=== PATIENT | female | born 1985 | race Caucasian/White ===

== ENCOUNTER 2016-10-29 23:04 | Emergency (ER) | payer BC, OTHER ==
[~2016-10-29] VITALS: Ht 160 cm; Wt 59.0 kg
[2016-10-29] MEDS ORDERED: NICO-180 (23:46)
--- NOTE | 2016-10-30 00:35 | NUR ---
Patient discharged to home in stable conditon. Written and verbal after care instructions given. Patient verbalizes understanding of instructions.
== END 2016-10-30 00:38 | disposition home or self-care (01) ==
LOC: ER 23:14
DX: F32.9 Major depressive disorder, single episode, unspecified (principal); F41.9 Anxiety disorder, unspecified; Z88.0 Allergy status to penicillin; F17.200 Nicotine dependence, unspecified, uncomplicated; G43.909 Migraine, unspecified, not intractable, without status migrainosus
CPT/HCPCS: 99284; A4663

== ENCOUNTER 2021-02-13 10:01 | Outpatient (CLI) | payer BC, OTHER ==
[~2021-02-13 10:01] MED LIST: [UNRECOGNIZED DRUG - CODE]
[2021-02-13 10:53] LABS: HEMATOCRIT 38.8 % (31.2-41.9); MEAN CORPUSCULAR HEMOGLOBIN 34.5 uug (24.7-32.8); MEAN CORPUSCULAR VOLUME 97.2 fL (75.5-95.3); PLATELET COUNT (AUTO) 260 K/uL (179-408)
[2021-02-13 11:06] LABS: BILIRUBIN,DIRECT 0.1 mg/dL (0.0-0.2); BILIRUBIN,TOTAL 0.5 mg/dL (0.2-1.0); TOTAL PROTEIN, SERUM 6.9 g/dL (6.4-8.2)
[2021-02-13 11:14] LABS: THYROID STIMULATING HORMONE 0.485 mIU/mL (0.358-3.740)
== END 2021-02-13 23:59 | disposition home or self-care (01) ==
LOC: LAB 10:01
PROVIDERS: ATTEND Obstetrics & Gynecology
DX: Z20.2 Contact with and (suspected) exposure to infections with a predominantly sexual mode of transmission (principal)
CPT/HCPCS: 36415; 84443; 85025; 86592; 86803; 86900; 86901; 87806

== ENCOUNTER 2024-04-19 22:09 | Emergency (ER) | payer BC, OTHER ==
[~2024-04-19] VITALS: Ht 160 cm; Wt 44.5 kg
[2024-04-20 01:14] LABS: BASOPHILS % (AUTO) 0.5 % (0.0-2.0); EOSINOPHILS # (AUTO) 0.1 K/uL (0.0-0.7); EOSINOPHILS % (AUTO) 1.6 % (0.0-7.0); HEMATOCRIT 29.1 % (31.2-41.9); HEMOGLOBIN 9.2 g/dL (10.9-14.3); LYMPHOCYTES # (AUTO) 1.2 K/uL (0.8-4.8); LYMPHOCYTES % (AUTO) 14.8 % (20.5-51.5); MEAN CORPUSCULAR HEMOGLOBIN 22.4 uug (24.7-32.8); MEAN CORPUSCULAR HGB CONC 32 g/dL (32.3-35.6); MEAN CORPUSCULAR VOLUME 70.5 fL (75.5-95.3); MONOCYTES # (AUTO) 0.6 K/uL (0.1-1.30); MONOCYTES % (AUTO) 7.7 % (0.0-11.0); NEUTROPHILS % (AUTO) 75.4 % (38.5-71.5); PLATELET COUNT (AUTO) 472 K/uL (179-408); RED BLOOD CELL COUNT(AUTO) 4.13 MIL/uL (3.63-4.92); RED CELL DISTRIBUTION WIDTH 22.1 % (12.3-17.7); WHITE BLOOD COUNT (AUTO) 7.9 K/uL (3.8-11.8)
[2024-04-20 01:32] LABS: DIFFERENTIAL COMMENT 1
[2024-04-20 02:00] LABS: ALANINE AMINOTRANSFERASE 7 U/L (14-59); ALBUMIN 2.7 g/dL (3.4-5.0); ALKALINE PHOSPHATASE 75 U/L (50-136); ASPARTATE AMINOTRANSFERASE 8 U/L (15-37); BILIRUBIN,DIRECT 0.1 mg/dL (0.0-0.2); BILIRUBIN,TOTAL 0.2 mg/dL (0.2-1.0); CALCIUM 8.4 mg/dL (8.5-10.1); CARBON DIOXIDE 34 mmol/L (21-32); CHLORIDE 100 mmol/L (98-107); CREATININE 0.6 mg/dL (0.6-1.3); GLUCOSE 118 mg/dL (74-106); LIPASE 23 U/L (16-77); POTASSIUM 3.1 mmol/L (3.5-5.1); SODIUM SERUM 139 mmol/L (136-145); TOTAL PROTEIN, SERUM 7.1 g/dL (6.4-8.2); UREA NITROGEN, BLOOD 16 mg/dL (7-18)
[2024-04-20 02:14] LABS: *BILIRUBIN,URIN NEGATIVE (NEGATIVE); *BLOOD, URINE 1+ (NEGATIVE); *CLARITY,URINE SLIGHTLY CLOUDY (CLEAR); *COLOR,URINE LIGHT YELLOW (YELLOW); *KETONES,URINE NEGATIVE (NEGATIVE); *PROTEIN,URINE NEGATIVE (NEGATIVE); *UROBILINOGEN,URINE 0.2 E.U./dl (NORMAL); LEUKOCYTE ESTERASE ,URINE 3+ (NEGATIVE); NITRITE, URINE NEGATIVE (NEGATIVE); UGLUCOSE NEGATIVE (NEGATIVE)
[2024-04-20 02:15] LABS: *URINE HCG, QUAL NEGATIVE (NEGATIVE)
[2024-04-20] MEDS: POTASSIUM CHLORIDE 50 ML IV SCH (02:15)
[2024-04-20] MEDS: ONDANSETRON 4 MG/2 ML VIAL IV ONE ×2 (02:15→06:15)
[2024-04-20] MEDS ORDERED: MORPHINE SULFATE 4 MG/1 ML DISP.SYRIN ONE (02:19)
[2024-04-20] MEDS ORDERED: ONDANSETRON 4 MG/2 ML VIAL ONE ×2 (02:19→06:17)
[2024-04-20] MEDS: MORPHINE SULFATE 2 MG/1 ML DISP.SYRIN IV ONE (02:20)
[2024-04-20 02:49] LABS: BACTERIA,URINE FEW /HPF (NONE SEEN); MUCUS,URINE FEW /LPF (0-FEW); SQUAMOUS EPITHELIAL CELL,UR MODERATE /HPF (NONE SEEN)
[2024-04-20] MEDS ORDERED: SWABABLE VALVE TRANSFER SET EA MC ONE (02:56)
[2024-04-20] MEDS ORDERED: IOHEXOL 300MG/ML 100 ML INFUS..BTL ONE (02:56)
[2024-04-20] MEDS ORDERED: IV NORMAL SALINE 250 ML IV ONE (02:57)
[2024-04-20 02:58] LABS: EOSINOPHILS % (MANUAL) 1 % (0-8); LYMPHOCYTES % (MANUAL) 15 % (20-40); MONOCYTES % (MANUAL) 5 % (2-10); NEUTROPHILS % (MANUAL) 79 % (42-75)
[2024-04-20] MEDS ORDERED: POTASSIUM CHLORIDE 50 ML ONE ×2 (02:59→03:36)
[2024-04-20] MEDS: IV NORMAL SALINE 1000 ML BAG IV ONE (03:55)
[2024-04-20] MEDS ORDERED: HYDROMORPHONE 1 MG/1 ML DISP.SYRIN ONE ×2 (04:22→06:17)
[2024-04-20] MEDS: HYDROMORPHONE 1 MG/1 ML DISP.SYRIN IV ONE ×2 (04:33→06:15)
[2024-04-20] MEDS ORDERED: CIPR500S3 PO (06:05)
[2024-04-20] MEDS ORDERED: TRAM50TA PO (06:05)
[2024-04-20] MEDS ORDERED: HYDR-3972 PO (06:07)
[2024-04-20 06:44] VITALS: BP 118/68; TEMP 97.8; O2SAT 99
== END 2024-04-20 06:46 | disposition home or self-care (01) ==
LOC: ER 23:18
DX: R10.9 Unspecified abdominal pain (principal); F17.200 Nicotine dependence, unspecified, uncomplicated; Z98.890 Other specified postprocedural states; Z88.0 Allergy status to penicillin; Z88.7 Allergy status to serum and vaccine
CPT/HCPCS: 36415; 70030-TC; 71045; 83690; 84484; 84703; 85025; A4606; A4663; J1171; J2270; J2405; J3480; J7040; Q9967